=== PATIENT | female | born 1950 | race Caucasian/White ===

== ENCOUNTER → 2020-04-18 12:08 | Outpatient (BNVA) | payer MEDICARE, SELFPAY | PROVIDERS: Family Provider Family Medicine; Visit Provider Nurse Practitioner Family | DX: J06.9 Acute upper respiratory infection, unspecified (principal); Z11.59 Encounter for screening for other viral diseases | CPT/HCPCS: 87635 ==

== ENCOUNTER 2021-01-08 07:47 | Outpatient (CLI) | payer MEDICARE, SELFPAY ==
--- NOTE | 2021-01-08 08:00 | CT_ITS ---
WS: [id number] LDCT LUNG CANCER SCREENING HISTORY: HX OF TOBACCO USE TECHNIQUE: Axial imaging performed from the apices to 1 cm below the costophrenic angles. Coronal and sagittal reformats are submitted with axial MIP series. All CT scans at [facility] use at least one of these dose optimization techniques: automated exposure control; mA and/or kV adjustment per patient size (includes targeted exams where dose is matched to clinical indication); or iterativ e reconstruction. DLP: 54.19 mGy.cm DIvol: 1.58 mGy COMPARISON: 08/17/2018, PET/CT 12/03/2018 Diagnostic quality: Satisfactory Lung Nodules: Subsolid nodule measuring 8 mm in the periphery of the RIGHT lower lobe small amount of adjacent groundglass attenuation. This nodule is on image 150 of series 3. Additional noncalcified 5 mm nodule in the periphery LEFT lower lobe, image 162 of series 3. No endobronchial lesions. Lungs: Moderate pulmonary hyperexpansion. Moderate amount of diffuse interstitial thickening and reti culation in the periphery of both lungs. There are additional benign and stable. Micronodules which a re less than 3 mm and calcified granuloma. Heart: Other findings: Moderate thickening of the mid to distal esophagus as seen on the prior study may be due to esophagitis or related to reflux disease. There are benign calcified lymph nodes in the hilar regions. Moderate atherosclerosis aorta. Pulmonary artery size is normal. Partially visualized well-c ircumscribed LEFT adrenal mass measures 3.5 x 3.5 cm. There is a central calcification. 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 No change in size since 08/17/2018. CT/CT lung screening [id number] IMPRESSION: LUNG-RADS: 3-Probably Benign FOLLOW UP: 6 Month LDCT OTHER FINDINGS (S MODIFIER): None.
== END 2021-01-08 07:48 | disposition home or self-care (01) ==
LOC: RAD 07:52
PROVIDERS: Visit Provider Nurse Practitioner Family
DX: Z12.2 Encounter for screening for malignant neoplasm of respiratory organs (principal); Z87.891 Personal history of nicotine dependence
CPT/HCPCS: 71271

== ENCOUNTER 2021-07-08 09:01 | Outpatient (CLI) | payer MEDICARE, SELFPAY ==
--- NOTE | 2021-07-08 | CT_ITS ---
WS: [id number] CT CHEST TECHNIQUE: Contrast enhanced CT of the chest with coronal and sagittal reformatted images. CLINICAL INFORMATION: PULMONARY NODULE COMPARISON: CT January 08, 2021 DLP: 931.[address] scans at [facility] use at least one of these dose optimization techniques: automated e xposure control; mA and/or kV adjustment per patient size (includes targeted exams where dose is matc hed to clinical indication); or iterative reconstruction. FINDINGS: Previously described 8-9 mm groundglass nodule right lower lobe is unchanged. Additional 5 mm noncalc ified nodule in the left lower lobe is also stable. A few calcified granulomas. A few tiny subpleural micronodules are unchanged. Moderate aortic calcifi cation with moderate peripheral thrombus descending thoracic aorta.. Stable calcified left adrenal le eladio measuring 3.5 CM. Chronic compression with vertebroplasty changes T12. Small esophageal hiatal hernia. CT/CT chest w con* [id number] IMPRESSION: Recommend 6 month follow-up chest CT.
== END 2021-07-08 09:02 | disposition home or self-care (01) ==
PROVIDERS: PCP Nurse Practitioner Family; Visit Provider Nurse Practitioner Family
DX: R91.1 Solitary pulmonary nodule (principal)
CPT/HCPCS: 71260

== ENCOUNTER 2021-12-31 10:10 | Outpatient (CLI) | payer MEDICARE, SELFPAY ==
--- NOTE | 2021-12-31 10:24 | CT_ITS ---
WS: [id number] CT CHEST TECHNIQUE: Contrast enhanced CT of the chest with coronal and sagittal reformatted images. CLINICAL INFORMATION: PULMONARY NODULE COMPARISON: CT July 08, 2021 DLP: 713.[address] scans at [facility] use at least one of these dose optimization techniques: automated e xposure control; mA and/or kV adjustment per patient size (includes targeted exams where dose is matc hed to clinical indication); or iterative reconstruction. FINDINGS: Previously described 8-9 mm groundglass nodule subpleural RIGHT lower lobe is unchanged. 4 mm noncalcified nodule LEFT lower lobe laterally is also unchanged. A few additional subpleural micro nodules are unchanged. Moderate to advanced chronic emphysematous changes. Calcified granulomas. Normal caliber thoracic aor ta. Moderate aortic atheromatous disease worse involving the descending thoracic aorta. Normal thyroi d gland. No mediastinal or hilar lymphadenopathy. Calcified RIGHT, hilar, mediastinal and subcarinal lymph nodes. Large LEFT adrenal lesion with calcifications measuring 3.8 x 3.4 cm appears unchanged. Splenic granu edith. Normal GE junction. RIGHT adrenal gland is normal. Normal celiac in the upper abdomen. No axillary lymphadenopathy. Prior vertebroplasty changes involving T12. CT/CT chest w con* [id number] IMPRESSION: 1. No change in the previously described pulmonary nodules. Recommend [address] follow-up.
[2021-12-31 11:40] LABS: Blood Urea Nitrogen 7 mg/dL (8-23)
[2021-12-31] MEDS: iodixanol 320 mg/mL 100mL Btl IV (11:42)
== END 2021-12-31 10:11 | disposition home or self-care (01) ==
PROVIDERS: PCP Nurse Practitioner Family; Visit Provider Nurse Practitioner Family
DX: R91.1 Solitary pulmonary nodule (principal)
CPT/HCPCS: 71260; 82565; 84520

== ENCOUNTER 2022-07-17 12:54 | Outpatient (CLI) | payer MEDICARE, SELFPAY ==
--- NOTE | 2022-07-17 13:00 | XR_ITS ---
WS: [id number] Bone mineral density performed on a [employer], 07/17/2022 Clinical data: POSTMENOPAUSAL Comparison: None. Findings: The first 4 lumbar vertebral bodies demonstrated the bone mineral density of 0.970 g/cm2 for a young adult T score of -1.7. Measurement of the left hip reveals a bone mineral density of 0.809 g/cm2 with a young adult T score of -1.6. Measurement of the right hip reveals the bone mineral density of 0.770 g/cm2 for young adult T score of -1.9. XR/XR DEXA axial skeleton* [id number] Impression: Osteopenia of the lumbar spine and both hips.
--- NOTE | 2022-07-17 13:30 | MM_ITS ---
WS: [id number] BILATERAL 3D TOMOSYNTHESIS DIGITAL SCREENING MAMMOGRAPHY WITH CAD CLINICAL INFORMATION: SCREENING HISTORY: Screening mammogram. Occasional white discharge. No other complaints. COMPARISON: None. TECHNIQUE: Bilateral CC and MLO views. FINDINGS: Scattered fibroglandular densities bilaterally. No suspicious focal mass, asymmetry, calcifications, or architectural distortion. No evidence of malignancy. A few incidental benign punctate and lucent c entered calcifications. MM/[place] [id number] IMPRESSION: BI-RADS: 2-Benign FOLLOW UP: 1 Year Follow-up Recommend return to annual screening mammography.
== END 2022-07-17 12:55 | disposition home or self-care (01) ==
LOC: RAD 12:54
PROVIDERS: PCP Nurse Practitioner Family; Visit Provider Nurse Practitioner Family
DX: Z12.31 Encounter for screening mammogram for malignant neoplasm of breast (principal); Z78.0 Asymptomatic menopausal state
CPT/HCPCS: 77063; 77067; 77080

== ENCOUNTER → 2022-09-03 14:06 | Outpatient (BNVA) | payer MEDICARE, SELFPAY | PROVIDERS: PCP Nurse Practitioner Family; Visit Provider Internal Medicine | DX: L68.9 Hypertrichosis, unspecified (principal); R14.0 Abdominal distension (gaseous); K59.00 Constipation, unspecified | CPT/HCPCS: 99204 ==

== ENCOUNTER 2022-09-23 14:06 | Outpatient (CLI) | payer MEDICARE, SELFPAY ==
[2022-09-23 15:58] LABS: Free T4 Free Thyroxine 1.29 ng/dL (0.82-1.77); Testosterone Total 43.5 ng/dL (2.9-40.8); Thyroid Stimulating Hormone 1.75 uIU/mL (0.27-4.20)
[2022-09-24 11:41] LABS: Dehydroepiandrosterone Sulfate 53 mcg/dL (9-118)
[2022-09-29 12:39] LABS: IGF1 LC/MS 153 ng/mL (34-245); Z Score (Female) 0.7 SD (-2.0 - +2.0)
== END 2022-09-23 14:07 | disposition home or self-care (01) ==
PROVIDERS: PCP Nurse Practitioner Family; Visit Provider Internal Medicine
DX: K59.00 Constipation, unspecified (principal); L68.9 Hypertrichosis, unspecified; R14.0 Abdominal distension (gaseous); Z79.899 Other long term (current) drug therapy
CPT/HCPCS: 36415; 82627; 83498; 84305; 84403; 84439; 84443

== ENCOUNTER → 2022-09-30 12:53 | Outpatient (BNVA) | payer MEDICARE, SELFPAY | PROVIDERS: PCP Nurse Practitioner Family; Referring Provider Nurse Practitioner Family; Visit Provider Specialist | DX: G62.89 Other specified polyneuropathies (principal) | CPT/HCPCS: 95909 ==

== ENCOUNTER → 2022-10-20 10:08 | Outpatient (BNVA) | payer MEDICARE, SELFPAY | PROVIDERS: PCP Nurse Practitioner Family; Visit Provider Internal Medicine Rheumatology | DX: M54.9 Dorsalgia, unspecified (principal); K59.00 Constipation, unspecified; L68.9 Hypertrichosis, unspecified; R14.0 Abdominal distension (gaseous); G62.89 Other specified polyneuropathies; M54.41 Lumbago with sciatica, right side; M54.42 Lumbago with sciatica, left side; G89.29 Other chronic pain; M25.50 Pain in unspecified joint | CPT/HCPCS: 72100; 99204 ==

== ENCOUNTER 2024-10-31 09:13 | Outpatient (CLI) | payer MEDICARE, SELFPAY ==
--- NOTE | 2024-10-31 09:19 | CT_ITS ---
WS: [id number] CT ABDOMEN AND PELVIS WITH CONTRAST HISTORY: UPPER ABDOMINAL PAIN TECHNIQUE: Imaging performed of the abdomen and pelvis with IV contrast. Single phase imaging of the abdomen. Coronal and sagittal reformats are submitted. All CT scans at [facility] use at least one of these dose optimization techniques: automated exposure control; mA and/or kV adjustment per patient size (includes targeted exams where dose is matched to clinical indication); or iterative reconstruction. IV CONTRAST: Omnipaque 350; 100 mL IV. Oral contrast: Yes. DLP: 661.61 mGy.cm COMPARISON: 11/17/2018 Lower thorax: Lung bases are clear. Heart is normal size. Small hiatal hernia. Mild distal esophageal wall thickening. Liver/biliary system: Too small to characterize hypodensity posterior RIGHT lobe measures 3 mm. No intrahepatic duct dilatation. Gallbladder: Normal. No gallstones or wall thickening. No pericholecystic fluid. Pancreas: Normal size pancreas and pancreatic duct. No adjacent inflammation. Spleen: Normal size spleen. No mass or infarct. Granuloma. Adrenal glands: Normal RIGHT adrenal gland. Heterogeneous LEFT adrenal mass measures 3.4 x 4.1 cm with a central calcification is unchanged since 2019. PET/CT indicated lipid poor adenoma. Right kidney: Normal. Left kidney: Normal. Aorta: Atherosclerotic plaque throughout the abdominal aorta. There is calcification and intimal thickening. Mild narrowing of the lumen by just greater than 50%. Narrowing of the aorta has progressed since 2019. Lymphadenopathy: None. Free fluid: None. GI tract: Normal stomach. No small bowel obstruction. Diffuse mild constipation. Prior appendectomy. Abdominal wall: Unremarkable abdominal wall. No hernia. Pelvis: No free fluid or adenopathy within the pelvis. Prior hysterectomy. Bones: T12 50% compression fracture with vertebroplasty. Mild bilateral hip joint arthritis. CT/CT abdomen pelvis w con* [id number] IMPRESSION: 1. No GI tract obstruction. No focal colonic lesion identified. 2. No ascites or adenopathy. 3. Small hiatal hernia. 4. Negative gallbladder. 5. Long-term stability LEFT adrenal mass measuring 3.4 x 4.1 cm. 6. Increasing atherosclerotic plaque within the abdominal aorta. Intraluminal stenosis in the infrarenal aorta just greater than 50%. 7. Prior hysterectomy.
[2024-10-31] MEDS: iohexol 350 mg/mL 500 mL Btl (per mL) IV ×2 (09:45→10:40)
== END 2024-10-31 09:14 | disposition home or self-care (01) ==
LOC: RAD 09:14
PROVIDERS: PCP Nurse Practitioner Family; Visit Provider Nurse Practitioner Family
DX: R10.10 Upper abdominal pain, unspecified (principal); K44.9 Diaphragmatic hernia without obstruction or gangrene; E27.8 Other specified disorders of adrenal gland; I70.0 Atherosclerosis of aorta; R93.5 Abnormal findings on diagnostic imaging of other abdominal regions, including retroperitoneum; Z90.710 Acquired absence of both cervix and uterus; K22.89 Other specified disease of esophagus; D73.89 Other diseases of spleen; K59.00 Constipation, unspecified; Z98.890 Other specified postprocedural states; M48.54XA Collapsed vertebra, not elsewhere classified, thoracic region, initial encounter for fracture; M16.0 Bilateral primary osteoarthritis of hip
CPT/HCPCS: 74177